=== PATIENT | female | born 1965 | race Caucasian/White ===

== ENCOUNTER → 2020-01-15 16:51 | Outpatient (CLI) | payer OTHER, SELFPAY ==
--- NOTE | ~2020-01-15 | MM_ITS ---
EXAMINATION: MM screening [facility] BI w sabrina HISTORY: Screening mammogram TECHNIQUE: Craniocaudal and mediolateral oblique 3-D tomosynthesis images were obtained and synthetic 2-D images were generated. CAD analysis was submitted and interpreted. COMPARISON: 12/03/2016, 06/18/2015, 03/22/2014, 01/24/2014 BREAST PARENCHYMAL COMPOSITION: The breasts are heterogeneously dense, which may obscure small masses . FINDINGS: There is no evidence of suspicious mass, calcification, or architectural distortion to sugg est malignancy in either breast. There has been no suspicious interval change. IMPRESSION: 1. No mammographic evidence of malignancy. 2. Recommend routine screening mammography in one year. BI-RADS Category 1: Negative Reviewed, dictated and finalized at location A. ARIAL SCIENCE PROFESSOR
== END ==
PROVIDERS: PCP Internal Medicine; Visit Provider Nurse Practitioner Obstetrics & Gynecology
DX: Z12.31 Encounter for screening mammogram for malignant neoplasm of breast (principal)
CPT/HCPCS: 77063; 77067

== ENCOUNTER → 2021-04-02 15:58 | Outpatient (CLI) | payer OTHER, SELFPAY ==
--- NOTE | ~2021-04-02 | MM_ITS ---
EXAMINATION: MM screening [facility] BI w sabrina HISTORY: Screening mammogram TECHNIQUE: Craniocaudal and mediolateral oblique 3-D tomosynthesis images were obtained and synthetic 2-D images were generated. CAD analysis was submitted and interpreted. COMPARISON: 01/15/2020, 12/03/2016, 06/18/2015 BREAST PARENCHYMAL COMPOSITION: The breasts are heterogeneously dense, which may obscure small masses . FINDINGS: There is no evidence of suspicious mass, calcification, or architectural distortion to sugg est malignancy in either breast. There has been no suspicious interval change. IMPRESSION: 1. No mammographic evidence of malignancy. 2. Recommend routine screening mammography in one year. BI-RADS Category 1: Negative Reviewed, dictated and finalized at location A. S ATTENDANT BUILDING MATERIALS
== END ==
PROVIDERS: Visit Provider Nurse Practitioner Obstetrics & Gynecology
DX: Z12.31 Encounter for screening mammogram for malignant neoplasm of breast (principal)
CPT/HCPCS: 77063; 77067

== ENCOUNTER 2021-06-03 19:06 | Emergency (ER) | payer OTHER, SELFPAY ==
[2021-06-03 19:13] VITALS: BP 148/78; PULSE 68; RESP 18; TEMP 36.8; O2SAT 99
[2021-06-03 19:36] LABS: Glucose Point of Care 109 mg/dl (65-105)
--- NOTE | 2021-06-03 19:41 | PC.NURSE ---
Pt states she wants dinner and to leave.
--- NOTE | 2021-06-03 19:41 | ED.GENADULT ---
HPI - General Adult General Chief complaint: Recheck/Abnormal Lab/Rx Stated complaint: HYPOGLYCEMIA Time Seen by Provider: 06/03/21 19:10 Source: patient, family, EMS and RN notes reviewed History of Present Illness HPI narrative: 56-year-old female with history of type 1 diabetes with an insulin pump presenting to the emerge department for evaluation of an episode of hypoglycemia. Patient states she did not have a very large lunch and suspects that she may have over-bolused herself. Patient states she began to feel ill while driving. Patient was able to green chain puller her car and call EMS. EMS did arrive to the scene and found that the patient had a blood sugar of 31. Patient was treated with D10 and was transported to the emerge department. Upon arrival patient was alert and oriented. Patient is tolerating p.o. Patient denies any other complaints at this time. Patient does have a history of coronary disease and did have a cath approximately 2 weeks ago. Patient denies any current chest pain or shortness of breath. Related Data Allergies Allergy/AdvReac Type Severity Reaction Status Date / Time No Known Allergies Allergy Unknown Unverified 08/02/16 23:25 Review of Systems Review of Systems: CONSTITUTIONAL: Denies fever, chills, or sweats. EYES: Denies visual changes, redness, or discharge. ENT: Denies rhinorrhea, congestion, sore throat, or otalgia. CARDIOVASCULAR: Denies chest pain, palpitations, or edema. RESPIRATORY: Denies cough or dyspnea. GASTROINTESTINAL: Denies abdominal pain, nausea, vomiting, or diarrhea. GENITOURINARY: Denies dysuria or hematuria. SKIN: Denies rash or itching. MUSCULOSKELETAL: Denies back pain, joint pain, or myalgia. NEUROLOGIC: Denies headache, numbness, or weakness. All systems reviewed & are unremarkable except as noted in HPI and below PMFSH Family History Family History (Updated 10/04/15 @ 23:19 by DOCTOR UNKNOWN) Mother Hypertension Family history of diabetes mellitus in first degree relative Social History Social History Smoking status: Never smoker Second hand tobacco smoke exposure: No Alcohol intake: never Exam Narrative: APPEARANCE: Well appearing, no pain, no distress, well-nourished. HEAD: normocephalic, atraumatic. EYES: PERRLA/EOMI, conjunctivae clear. NECK: Supple. No adenopathy, no masses. RESPIRATORY: Airway patent, respirations nonlabored. Clear to auscultation bilaterally, no rales, rhonchi, wheezing. CARDIOVASCULAR: Regular rate and rhythm without murmurs rubs or gallops. ABDOMINAL: Soft, nontender, nondistended, normal bowel sounds MUSCULOSKELETAL: Moves all extremities. Strength/ROM intact, No edema, No calf tenderness. NEURO: Alert. Cranial nerves II through XII intact. Grossly intact SKIN: Warm, dry. Normal Color PSYCHIATRIC: Normal affect/mood. Course Course Emergency Course: Patient was offered baseline labs and patient declined. Patient did have a repeat blood glucose in the emergency department which was 109. Patient is tolerating p.o. Patient is declining any additional work-up and does prefer to go home. Patient was encouraged to close follow-up with her primary care physician. Patient is alert and oriented and is well-appearing at time of discharge. Vital Signs Vital signs: Vital Signs Temperature 98.2 F 06/03/21 19:13 Pulse Rate 68 06/03/21 19:13 Respiratory Rate 18 06/03/21 19:13 Blood Pressure 148/78 H 06/03/21 19:13 Pulse Oximetry 99 06/03/21 19:13 Temperature 98.2 F 06/03/21 19:13 Pulse Rate 68 06/03/21 19:13 Respiratory Rate 18 06/03/21 19:13 Blood Pressure 148/78 H 06/03/21 19:13 Pulse Oximetry 99 06/03/21 19:13 Medical Decision Making Vital Signs Vital Signs: Vital Signs Temperature 98.2 F 06/03/21 19:13 Pulse Rate 68 06/03/21 19:13 Respiratory Rate 18 06/03/21 19:13 Blood Pressure 148/78 H 06/03/21 19:13 Pulse Oximetry 99 06/03/21 19:13 Temperature 98.2 F 05/07
== END 2021-06-03 19:51 | disposition home or self-care (01) ==
LOC: ANHED 19:47
PROVIDERS: Emergency Provider Emergency Medicine; PCP Nurse Practitioner Family
DX: E10.649 Type 1 diabetes mellitus with hypoglycemia without coma (principal); I25.10 Atherosclerotic heart disease of native coronary artery without angina pectoris; Z79.4 Long term (current) use of insulin; Z96.41 Presence of insulin pump (external) (internal)
CPT/HCPCS: 82948; 99282

== ENCOUNTER 2022-06-14 08:48 | Emergency (ER) | payer OTHER, SELFPAY ==
--- NOTE | ~2022-06-14 | XR_ITS ---
XR chest 2V DATE: 06/14/2022 09:29 INDICATION: Left chest pressure and chest pain since last evening. TECHNIQUE: 2 views COMPARISON: 05/20/2017 CTA chest 05/20/2017 portable AP chest 08/03/2016 two-view chest FINDINGS: There is evidence of a coronary artery stent since 05/20/2017. Normal heart size. Mild discoid atelectasis or scarring, left lower lung. The lungs are clear of active infiltrate or co nsolidation. No pleural effusion or pulmonary vascular congestion or pneumothorax is detected. Included skeletal structures are unremarkable. IMPRESSION: Coronary artery stent since 05/20/2017 Small discoid atelectasis or scar, left lower lung; otherwise no activecardiopulmonary disease Reviewed, dictated and finalized at location A. IMPRESSION: Coronary artery stent since 05/20/2017 Small discoid atelectasis or scar, left lower lung; otherwise no activecardiopu lmonary disease
--- NOTE | 2022-06-14 08:49 | ECG_ITS ---
Measurements Intervals [place] Rate: 72 P: 5 MA: 145 QRS: 71 QRSD: 91 T: 15 QT: 367 QTc: 404 Interpretive Statements SINUS RHYTHM NORMAL ECG NO PREVIOUS ECG AVAILABLE FOR COMPARISON Electronically Signed On 06-14-2022 13:52:40 CDT by Milton Damon M.D.
[2022-06-14 08:50] VITALS: BP 157/54; PULSE 76; RESP 16; TEMP 36.4; O2SAT 100
[2022-06-14 09:02] LABS: Basophils Percent Auto 0.5 % (0.2-1.2); Eosinophils Absolute Auto 0.1 K/mm3 (0-0.3); Eosinophils Percent Auto 3.5 % (0-4.4); Hematocrit 35.6 % (37.0-47.0); Hemoglobin 11.9 g/dL (12.0-15.0); Immature Granulocyte Absolute 0.01 K/mm3 (0.00-0.031); Immature Granulocyte Percent A 0.2 % (0-0.5); Lymphocytes Absolute Auto 1.19 K/mm3 (0.9-3.2); Lymphocytes Percent Auto 29.4 % (18.3-44.2); Mean Corpuscular HGB Conc 33.4 g/dl (32-36); Mean Corpuscular Hemoglobin 31.4 pg (26-34); Mean Corpuscular Volume 93.9 fl (80-100); Mean Platelet Volume 10.8 fl (7.4-10.4); Monocytes Absolute Auto 0.3 K/mm3 (0.1-0.6); Monocytes Percent Auto 7.9 % (2.6-8.5); Neutrophils Absolute Auto 2.4 K/mm3 (1.3-6.7); Neutrophils Percent Auto 58.5 % (45.5-73.1); Platelet Count Result 205 k/mm3 (150-375); Red Blood Count 3.79 M/mm3 (4.2-5.4); Red Cell Distribution Width 13.3 % (11.5-14.5); White Blood Count 4.1 K/mm3 (4.5-10.0)
[2022-06-14 09:12] LABS: Alanine Aminotransferase 41 U/L (6-35); Albumin Level 4.6 g/dL (3.5-5.1); Alkaline Phosphatase 81 U/L (38-126); Anion Gap 6 mmol/L (8-16); Aspartate Amino Transferase 40 U/L (14-36); Blood Urea Nitrogen 22 mg/dL (7-17); Calcium 9.2 mg/dL (8.4-10.2); Carbon Dioxide 30 mmol/L (22-30); Chloride 102 mmol/L (98-107); Estimated CRCL calculation 55 ml/min; Estimated Glomerular Filt Rate 52; Glucose 177 mg/dL (65-110); Lipase 330 U/L (23-300); Potassium 4.4 mmol/L (3.4-5.0); Sodium 138 mmol/L (137-145)
[2022-06-14 09:13] LABS: Partial Thromboplastin Time 32.1 SECONDS (22.3-36.8); Prothrombin Time 13.1 Seconds (11.1-14.7)
[2022-06-14 09:23] LABS: Troponin I < 0.012 ng/mL (0.000-0.034)
--- NOTE | 2022-06-14 10:39 | PC.NURSE ---
pt stating she is going to leave. states has preexisting medical condition that causes her to have chest pain. states obviously im not having a heart attack or i wouldnt be sitting in the waiting room
== END 2022-06-14 12:31 | disposition left against medical advice (07) ==
PROVIDERS: Emergency Medicine; PCP Nurse Practitioner Family
DX: R07.9 Chest pain, unspecified (principal)
CPT/HCPCS: 36415; 71046; 80053; 83690; 84484; 85025; 85610; 85730; 93005; 99199

== ENCOUNTER 2024-11-07 12:46 | Outpatient (CLI) | payer OTHER, SELFPAY ==
--- NOTE | ~2024-11-07 | MM_ITS ---
EXAMINATION: MM screening [facility] BI w sabrina HISTORY: Screening TECHNIQUE: Craniocaudal and mediolateral oblique 3-D tomosynthesis images were obtained and synthetic 2-D images were generated. CAD analysis was submitted and interpreted. COMPARISON: Mammograms from 04/02/2021 and 01/15/2020 BREAST PARENCHYMAL COMPOSITION: The breasts are heterogeneously dense, which may obscure small masses. FINDINGS: There is no evidence of suspicious mass, calcification, or architectural distortion in either breast to suggest malignancy. There has been no significant interval change. IMPRESSION: 1. No mammographic evidence of malignancy. Recommend routine screening mammography in one year. BI-RADS Category 1: Negative Reviewed, dictated and finalized at location Q. IMPRESSION: 1. No mammographic evidence of malignancy. Recommend routine screening mammogra phy in one year. BI-RADS Category 1: Negative
--- OUTSIDE RECORDS SUMMARY | 2024-11-07 12:57 | XMS_ITS | Encounter Summary ---
Author Organization [facility] Facility Care Team Providers Care Network Development Coordinator Name Role Phone Eliz Rosas MD Primary Care Provider [phone] Yvan Wade MD Unavailable Rosa Clayton ALUMINUM SIDING APPLICATOR Primary Care Provider + Praful Corley DO Unavailable [phone] Isaac Cuadra DO Primary Care Provider + Encounter Details Date Type Department Care Team (Latest Contact Info) Description 08/02/2016 Orders Only [facility] CLINCONV Provider, MD Yoli [address] [place] [id number] Social History Tobacco Use Types Packs/Day Years Used Date Smoking Tobacco: Never Assessed Alcohol Use Standard Drinks/Week Comments No 0 (1 standard drink = 0.6 oz pur e alcohol) Comments Unknown Sex and Gender Information Value Date Recorded Sex Assigned at Not on file Legal Sex Female 11:08 PM PATIENT ADVOCATE Gender Identity Not on file Sexual Orientation Not on file documented as of this encounter Plan of Treatment Not on file documented as of this encounter Procedures Procedure Name Priority Date/Time Associated Diagnosis Comments SCAN - LABS 08/04/2016 12:00 AM CDT documented in this encounter Results * SCAN - LABS (08/04/2016 12:00 AM CDT) Narrative 08/04/2016 12:00 AM CDT Ordered by an unspecified provider. Historical Provider Final Res ult documented in this encounter Visit Diagnoses Not on filedocumented in this encounter Care Teams Network Development Coordinator Relationship Specialty Start Date End Date Eliz Rosas MD [address] [facility] [address] [facility] [place] [address] PCP - General 02/12/10 05/05/21 Rosa Clayton, YUE [address] [facility] [address] [place] [place] [address] PCP - General Nurse Practitioner 05/06/21 12/07/23 Isaac Cuadra DO [facility] [facility] [address] [place] [place] [address] PCP - General Family Medicine 12/08/23 Yvan Wade MD [address] [facility] [place] [address] Consulting Physician Cardiovascular Disease 10/19/20 Praful Corley DO [address] [facility] [address] [place] [address] Consulting Physician Pulmonary Disease 05/13/21 documented as of this encounter
--- OUTSIDE RECORDS SUMMARY | 2024-11-07 12:57 | XMS_ITS | Encounter Summary ---
Author Organization [facility] Facility Care Team Providers Care Sewing Techniques Demonstrator Name Role Phone Eliz Rosas MD Primary Care Provider [phone] Yvan Wade MD Unavailable Rosa Clayton BUSINESS CASE ANALYST Primary Care Provider + Praful Corley DO Unavailable [phone] Isaac Cuadra DO Primary Care Provider + Encounter Details Date Type Department Care Team (Latest Contact Info) Description 05/20/2017 Orders Only [facility] CLINCONV Provider, MD Yoli [address] [place], [place] [id number] Social History Tobacco Use Types Packs/Day Years Used Date Smoking Tobacco: Never Assessed Alcohol Use Standard Drinks/Week Comments No 0 (1 standard drink = 0.6 oz pur e alcohol) Comments Unknown Sex and Gender Information Value Date Recorded Sex Assigned at Not on file Legal Sex Female 11:08 PM BROKER IN CHARGE Gender Identity Not on file Sexual Orientation Not on file documented as of this encounter Plan of Treatment Not on file documented as of this encounter Procedures Procedure Name Priority Date/Time Associated Diagnosis Comments CARDIOLOGY REPORT 05/25/2017 12: 00 AM CDT CARDIOLOGY REPORT 05/25/2017 12: 00 AM CDT CARDIOLOGY REPORT 05/24/2017 12: 00 AM CDT documented in this encounter Results * CARDIOLOGY REPORT (05/25/2017 12:00 AM CDT) Anatomical Region Laterality Modality Other Narrative 05/25/2017 12:00 AM CDT Ordered by an unspecified provider. us Historical Provider CV CARDIAC SERVICES PROCE DURES Final Result * CARDIOLOGY REPORT (05/25/2017 12:00 AM CDT) Anatomical Region Laterality Modality Other Narrative 05/25/2017 12:00 AM CDT Ordered by an unspecified provider. Historical Provider CV CARDIAC SERVICES PROCE DURES Final Result * CARDIOLOGY REPORT (05/24/2017 12:00 AM CDT) Anatomical Region Laterality Modality Other Narrative 05/24/2017 12:00 AM CDT Ordered by an unspecified provider. Historical Provider CV CARDIAC SERVICES PROCE DURES Final Result documented in this encounter Visit Diagnoses Not on filedocumented in this encounter Care Teams Sewing Techniques Demonstrator Relationship Specialty Start Date End Date Eliz Rosas MD [address] [place] [address] [address] [place] [address] PCP - General 02/12/10 05/05/21 Rosa Clayton NP [address] [address] [place] [address] PCP - General Nurse Practitioner 05/06/21 12/07/23 Isaac Cuadra DO [address] [place] [address] [place] [address] PCP - General Family Medicine 12/08/23 Yvan Wade MD [address] [address] [address] [place] [address] Consulting Physician Cardiovascular Disease 10/19/20 Praful Corley DO [address] [place] [address] [address] [place] [address] Consulting Physician Pulmonary Disease 05/13/21 documented as of this encounter
--- OUTSIDE RECORDS SUMMARY | 2024-11-07 12:57 | XMS_ITS | Encounter Summary ---
Author Organization [facility] Healthcare Address [address] [place] [address] Care Team Providers Care Ux Engineer Name Role Phone Eliz Rosas MD Primary Care Provider [phone] Yvan Wade MD Unavailable Rosa Clayton CEO & BOARD DIRECTOR Primary Care Provider + Praful Corley DO Unavailable [phone] Isaac Cuadra DO Primary Care Provider + Encounter Details Date Type Department Care Team (Late st Contact Info) Description 05/20/2017 Orders Only [facility] Health Information Management [address] [place] [address] Scanning, Provider Social History Tobacco Use Types Packs/Day Years Used Date Smoking Tobacco: Never Assessed Alcohol Use Standard Drinks/Week Comments No 0 (1 standard drink = 0.6 oz pur e alcohol) Comments Unknown Sex and Gender Information Value Date Recorded Sex Assigned at Not on file Legal Sex Female 11:08 PM SEED CORN PRODUCTION MANAGER Gender Identity Not on file Sexual Orientation Not on file documented as of this encounter Plan of Treatment Not on file documented as of this encounter Procedures Procedure Name Priority Date/Time Associated Diagnosis Comments CARDIOLOGY DOCUMENT SCAN 05/20/2017 documented in this encounter Results * Cardiology Document Scan (05/20/2017) Anatomical Region Laterality Modality Other us Provider Scanning CV CARDIAC SERVICES PROCEDURES Final Result documented in this encounter Visit Diagnoses Not on filedocumented in this encounter Care Teams Ux Engineer Relationship Specialty Start Date End Date Eliz Rosas MD [address] [facility] [address] [facility] [address] PCP - General 02/12/10 05/05/21 Rosa Clayton, YUE [address] [facility] [place] [address] PCP - General Nurse Practitioner 05/06/21 12/07/23 Isaac Cuadra, [address] [facility] [address] [place] [address] PCP - General Family Medicine 12/08/23 Yvan Wade MD [address] [facility] [address] [place] [address] Consulting Physician Cardiovascular Disease 10/19/20 Praful Corley DO [address] [facility] [address] [place] [address] Consulting Physician Pulmonary Disease 05/13/21 documented as of this encounter
--- OUTSIDE RECORDS SUMMARY | 2024-11-07 12:57 | XMS_ITS | Clinical Summary ---
Author Organization [facility] [place] [address] Address [address] [place] [address] Care Team Providers Care Site Inspector Name Role Phone Yvan Wade MD Unavailable Praful Corley DO Unavailable [phone] Isaac Cuadra DO Primary Care Provider + Allergies No known active allergies Medications insulin aspart (NovoLOG) 100 unit/mL vial for injection Use 3 vials in Insulin pump/ Max 100 units daily 30 mL 3 1 Active multivitamin capsule Take 1 capsule by mouth daily Active Dexcom G6 Transmitter device CHANGE TRANSMITTER EVERY 90 DAYS. 3 Active glucagon (Gvoke HypoPen 1-Pack) 1 mg/0.2 mL auto-injector INJECT 1 MG NEEDED BY SUBCUTANEOUS ROUTE NEEDED FOR 1 DAY. Active nitroglycerin (NITROSTAT) 0.4 mg SL tabletIndicatio ns:Coronary artery disease of [place] artery of [place] heart with stable angina pectoris,Primar y hypertension,Mi xed hyperlipidemia, Bruit of right carotid artery Place 1 tablet (0.4 mg total) under the tongue every 5 (five) minutes as needed for chest pain May repeat dose q 5 min, up to 3 doses total 10 tablet 4 Active aspirin 81 mg enteric coated tabletIndicatio ns:Coronary artery disease of [place] artery of [place] heart with stable angina pectoris,Primar y hypertension,Mi xed hyperlipidemia, Bruit of right carotid artery Take 1 tablet (81 mg total) by mouth daily 90 tablet 1 4 Active clopidogreL (PLAVIX) 75 mg tabletIndicatio ns:Coronary artery disease of [place] artery of [place] heart with stable angina pectoris,Primar y hypertension,Mi xed hyperlipidemia, Bruit of right carotid artery Take 1 tablet (75 mg total) by mouth daily 90 tablet 1 4 Active isosorbide mononitrate ER (IMDUR) 60 mg 24 hr tabletIndicatio ns:Coronary artery disease of [place] artery of [place] heart with stable angina pectoris,Primar y hypertension,Mi xed hyperlipidemia, Bruit of right carotid artery Take 1 tablet (60 mg total) by mouth daily 90 tablet 1 4 Active lisinopriL (PRINIVIL,ZESTR [place]) 20 mg tabletIndicatio ns:Coronary artery disease of [place] artery of [place] heart with stable angina pectoris,Primar y hypertension,Mi xed hyperlipidemia, Bruit of right carotid artery Take 1 tablet (20 mg total) by mouth daily 90 tablet 1 4 Active rosuvastatin (CRESTOR) 40 mg tabletIndicatio ns:Coronary artery disease of [place] artery of [place] heart with stable angina pectoris,Primar y hypertension,Mi xed hyperlipidemia, Bruit of right carotid artery Take 1 tablet (40 mg total) by mouth nightly 90 tablet 1 4 Active metoprolol XL (TOPROL-XL) 25 mg extended release tabletIndicatio ns:Coronary artery disease of [place] artery of [place] heart with stable angina pectoris,Primar y hypertension,Mi xed hyperlipidemia, Bruit of right carotid artery Take 1 tablet (25 mg total) by mouth daily 90 tablet 4 Active Xarelto 2.5 mg tablet Take 1 tablet (2.5 mg total) by mouth 2 (two) times a day 5 Active Active Problems Problem Noted Date Diagnosed Date Diabetic neuropathy, type I diabetes mellitus (C MS/HCC) 10/20/2023 Bruit of right carotid artery 10/20/2023 Mixed hyperlipidemia 04/08/2023 Epigastric pain 10/17/2021 Status post primary angioplasty with coronary st ent 12/11/2020 Lung blebs 10/28/2020 Assessment & Plan (10/28/2020 5:08 PM CDT): As seen on CT imaging Pulmonary consultation Could be a source of chest pain symptoms CAD (coronary artery disease) 10/28/2020 Overview (10/28/2020): As recently diagnosed Cardiology consultation Patient will continue aspirin and Brilinta therapies Pending further recommendations for adjustments to management Chest pain 10/18/2020 Assessment & Plan (10/28/2020 7:24 PM CDT): Telemetry Cardiology consultation Serial cardiac enzymes Nitroglycerin p.r.n. Morphine p.r.n. Aspirin Recent history of coronary artery disease with stent placement, and starting of Brilinta and aspirin therapies Differential diagnosis includes pulmonary blebs versus GERD versus esophageal vasospasms versus other; Will supplement IV Pepcid x1 dose now--pending follow-up assessment Positive cardiac stress test 10/17/2020 Overview (10/17/2020): Added automatically from request for surgery [id number] Dyslipidemia 07/19/2020 Assessment & Plan (10/28/2020 7:21 PM CDT): Continue home regimen Family history of coronary artery disease 2020 Other chest pain 07/03/2020 Assessment & Plan (07/03/2020 12:19 PM CDT): The patient has atypical chest pain. Will make a referral to see a assayer for stress test. Her symptoms are not typical for cardiac pain. Primary hypertension 07/03/2020 Assessment & Plan (10/28/2020 5:09 PM CDT): Continue home regimen Assessment & Plan (07/03/2020 12:19 PM CDT): Continue current medications. Discussed low-salt diet. Discussed exercise on regular basis. Will continue to monitor Colon cancer screening 03/31/2019 Assessment & Plan (07/03/2020 12:18 PM CDT): She was advised again to have colo guard test done as soon as possible Assessment & Plan (10/31/2019 3:15 PM CDT): Patient did not have colo guard test done. We we will order the test again. The patient understand the risk of cancer Assessment & Plan (03/31/2019 12:36 PM STORE GIFT WRAP ASSOCIATE): The patient declined colonoscopy. She agreed to have the colo guard test done. It was ordered but she did not do with yet. The patient was advised to have the test done as soon as possible. Cervical pain (neck) 09/30/2018 Assessment & Plan (10/31/2019 3:15 PM CDT): The patient was offered to see pain specialist for further evaluation and she declined. The patient has no weakness in the upper extremities Assessment & Plan (03/31/2019 12:35 PM STORE GIFT WRAP ASSOCIATE): Resolved Assessment & Plan (09/30/2018 12:40 PM CDT): Will obtain MRI of the cervical spine for further evaluation specially with the numbness in both hands to rule out cervical disc disease Pure hypercholesterolemia 09/30/2018 Assessment & Plan (07/03/2020 12:18 PM CDT): Controlled on current medications. Continue low-fat diet. Will continue to monitor . Assessment & Plan (10/31/2019 3:15 PM CDT): Patient is on low-fat diet and Crestor. Blood work was done. Assessment & Plan (03/31/2019 12:35 PM STORE GIFT WRAP ASSOCIATE): Patient was started on Crestor by the type casting machine operator and she was advised to take the medication Assessment & Plan (09/30/2018 12:40 PM CDT): Discussed low-fat diet and weight loss. The patient likes to avoid medications. Will check lipid will few months and if it is not controlled we will consider medication Peripheral neuropathy 09/13/2015 Assessment & Plan (10/31/2019 3:14 PM CDT): Patient has peripheral neuropathy. She is not interested in medications her. Her symptoms could be secondary to diabetes but they also could be secondary to her chronic neck disease with the bulging disc. Assessment & Plan (03/31/2019 12:35 PM STORE GIFT WRAP ASSOCIATE): Asymptomatic Assessment & Plan (09/30/2018 12:39 PM CDT): . Mild and no medications are needed Type 1 diabetes mellitus without complication (C MS/HCC) 07/22/2013 Overview (06/11/2016): DMI WO CMP NT ST UNCNTRL Assessment & Plan (10/28/2020 7:21 PM CDT): Continue home regimen Fingersticks q.a.c. and HS with low-dose sliding scale Assessment & Plan (07/03/2020 12:18 PM CDT): Patient will continue with current medications and advised to have annual eye exam and advised to follow-up with type casting machine operator Assessment & Plan (10/31/2019 3:16 PM CDT): Patient is maintained on insulin. She is followed by the type casting machine operator. She stop taking lisinopril. I told her it is a good idea to take it to lower the blood pressure and to protect her kidneys from diabetes. She stated that the type casting machine operator told her that she did not need to take it so she decided not to take it. Assessment & Plan (03/31/2019 12:35 PM STORE GIFT WRAP ASSOCIATE): Continue current medications, discussed low carbohydrate diet, advised to exercise on regular basis, advised to have annual eye exam. We will continue to monitor. Assessment & Plan (09/30/2018 12:39 PM CDT): The patient is on insulin pump and she will follow up with the type casting machine operator. She is up-to-date with eye exam Resolved Problems Problem Noted Date Diagnosed Date Resolved Date Abnormal stress echo 10/18/2020 022 Encounters Date Type Department Care Team Description 10/20/2024 12:28 PM CDT - 10/20/2024 11:59 PM CDT Hospital Encounter [facility] [address] [place], [place] [id number] Discharge Disposition: Discharge to home or self care 10/20/2024 12:15 PM CDT Office Visit [facility] [id number] [place] [address] [phone] Lesli Rachel PA Acute pain of right knee (Primary Dx) from Last 3 Months Immunizations Immunization Administration Dates Next Due Influenza, Quadrivalent, Tesha l Culture-based MDCK, Antibiotic Free, Intramuscular 12/22/2018 Influenza, Quadrivalent, Spl it, Intramuscular 12/26/2015 Influenza, Quadrivalent, Spl it, Preservative Free, Intramuscular 12/16/2017,12/17/2016 Influenza, Trivalent, IM (MDV) 12/08/2012 Influenza, Trivalent, Preser vative Free, Intramuscular 12/20/2008,12/28/2007,01/06/2006 Tdap 03/31/2019 Surgical History Surgery Date Site/Laterality Comments TONSILLECTOMY as a child TYMPANOSTOMY TUBE PLACEMENT CARDIAC CATHETERIZATION 10/06/2020 - 11/05/2020 stent x1 - Dr Raza - Lucero and Aspirin. EYE SURGERY Left cataract SECTION 1994, 2000 Medical History Medical History Date Comments Hypertension Hypertension Hyperlipidemia Heart murmur GERD (gastroesophageal reflux disease) ? taking prilosec - attempting to r/o cardiac vs GERD. Bulging of cervical intervertebral disc numbness and tingling down arms. Allergic rhinitis Dental crowns present molar [place] ns. Emphysema of lung per CXR and CT Scan of Chest. SANDERSON (dyspnea on exertion) with S teps. Chest pain CAD (coronary artery disease) st ent x 06 Oct [address] Type 1 DM Bleb, lung (HCC) Right Lower Lob e Bleb - Seen by Dr Corley - no further interventions needed. Family history of adverse re action to anesthesia Dad slow to wake after anest hesia Type 1 diabetes mellitus 1979 Diabete s type 1 since age 14. Insulin pump. Family History Medical History Relation Name Comments Heart disease Father CAD s/p PCI Hyperlipidemia Father Diabetes Mother Hypertension Mother Diabetes type II Other Family hist ory of Diabetes -Type 2; Relation Name Status Comments Father Alive Mother Alive Other Social History Tobacco Use Types Packs/Day Years Used Date Smoking Tobacco: Never Smokeless Tobacco: Never Tobacco Cessation:Counseling Given: Not Answered Alcohol Use Standard Drinks/Week Comments Yes 0 (1 standard drink = 0.6 oz pur e alcohol) socially AUDIT-C Answer Date Recorded Q1: How often do you have a drink containing alc ohol? 2-3 times a week 05/13/2021 Q2: How many drinks containi ng alcohol do you have on a typical day when you are drinking? 1 or 2 05/13/2021 Q3: How often do you have si x or more drinks on one occasion? Never 05/13/2021 PHQ-2 Answer Date Recorded PHQ-2 Total Score (If total score is 3 or more points, staff should administer the PHQ-9) 0 12/11/2020 Education Answer Date Recorded What is the highest level of school you have completed or the highest degree you have received? 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 N ot on file Not on file Obstetrics History Last Filed Vital Signs Vital Sign Reading Time Taken Comments Blood Pressure 146/60 10/20/2023 12:06 PM CDT Pulse 67 10/20/2023 12:06 PM CDT Temperature 36.6 C (97.8 F) 05/19/2021 1:30 PM CDT Respiratory Rate 16 04/08/2023 9:52 AM STORE GIFT WRAP ASSOCIATE Oxygen Saturation 99% 10/20/2023 12:06 PM CDT Inhaled Oxygen Concentration - - Weight 77.1 kg (170 lb) 10/20/2024 12:22 PM CDT Height 167.6 cm (5' 6) 10/20/2024 12:22 PM CDT Body Mass Index 27.44 10/20/2024 12:22 PM CDT Plan of Treatment Health Maintenance Due Date Last Done Comments Colon Cancer Screening-Colonoscopy 1967 Foot Exam 1967 Hepatitis C Screening 1967 TSH Level 1967 Hepatitis B Screening 1985 Regular Well Visit/Exam 18-64 1985 Pneumococcal vaccine <65 (1 of 2 - PCV) 1986 Zoster Vaccine (1 of 2) 2017 Cervical Cancer Screening 04/25/2018 04/25/2017 Albumin Creatinine Ratio, Urine 01/25/2019 8 Hemoglobin A1C 04/20/2021 10/18/2020, 2 08/2020, 10/31/2019, Additional history exists Depression Screening 12/11/2021 12/11/2020, 12/11/2020, 07/03/2020, Additional history exists Breast Cancer Screening-Mammogram 04/03/2022 04/03/2021, 01/16/2020, 01/15/2020, Additional history exists Lipid Panel 05/15/2022 05/15/2021, 2 08/2020, 10/31/2019, Additional history exists eGFR 05/15/2022 05/15/2021, 10/07, 10/19/2020, Additional history exists Dilated Eye Exam 03/31/2023 03/31/2022, , 04/08/2019, Additional history exists Covid-19 Vaccine (2023-2 5 season) 2023 02/18/2021, 05/13/2020, 05/13/2020, Additional history exists Influenza Vaccine (#1) 2024 , 12/19/2020, 12/17/2020, Additional history exists DTaP/Tdap/Td Vaccine (2 - Td or Tdap) 03/31/2029 03/31/2019 Medical Devices Implanted Type Area Chief Deputy Court Clerk Device Identifier Shelf Expiration Date Model / Serial / Lot [employer] X [id number] Resolute [place] 3.5mm 2.1-2.7fr 34mm 140cm Rapid Exchange - [id number] Implanted:Qty: 1 on 10/18/2020 by Yuniel Raza MD at [facility] [employer] 06/26/2023 [id number] / / [id number] [employer] [place] [id number] Angio-Seal Evolution 6fr .035in Guidewire Bypass Tube Suture - [id number] Implanted:Qty: 1 on 10/18/2020 by Yuniel Raza MD at [facility] [id number] / / Angio-Seal Vip 6fr Closere Device [id number] - [id number] Implanted:Qty: 1 on 05/15/2021 by Yuniel Raza MD at [facility] 02/04/2022 [id number] / / [id number] Procedures Procedure Name Priority Date/Time Associated Diagnosis Comments XR KNEE RIGHT 3 VIEWS Schedule Routine, Read Routine (OP Routine) 10/20/2024 12:47 PM CDT Acute pain of right knee DIABETIC EYE EXAM Routine 03/31/2022 EGFR STAT 05/15/2021 6:51 AM STORE GIFT WRAP ASSOCIATE LIPID PANEL STAT 05/15/2021 6:51 AM STORE GIFT WRAP ASSOCIATE HEMOGLOBIN A1C Routine 10/18/2020 4:40 AM CDT HM MAMMOGRAPHY Routine 01/15/2020 ALBUMIN CREATININE RATIO, URINE Routine 01/25/2018 7:29 AM STORE GIFT WRAP ASSOCIATE HM PAP SMEAR WITH HPV Routine 04/25/2017 from Last 3 Months or Most Recently Relevant to Health Maintenance Results * XR Knee Right 3 View (10/20/2024 12:47 PM CDT) Anatomical Region Laterality Modality Lower Extremities, Knee Right Computed Radiography 10/20/2024 12:5 9 PM CDT Impressions 10/20/2024 12:59 PM CDT Mild patellofemoral compartment right knee osteoarthritis Electronically signed by: Estrada Beaver MD Narrative 10/20/2024 12:59 PM CDT EXAMINATION: XR KNEE RIGHT 3 VIEWS HISTORY: Right knee pain FINDINGS: No comparison. Mild patellofemoral compartment right knee osteoarthritis. Normal alignment. No fracture. Small right knee joint effusion. Mild anterior soft tissue swelling. Vascular calcifications. Procedure Note Estrada Beaver MD - 10/20/2024 EXAMINATION: XR KNEE RIGHT 3 VIEWS HISTORY: Right knee pain FINDINGS: No comparison. Mild patellofemoral compartment right knee osteoarthritis. Normal alignment. No fracture. Small right knee joint effusion. Mild anterior soft tissue swelling. Vascular calcifications. IMPRESSION: Mild patellofemoral compartment right knee osteoarthritis Electronically signed by: Estrada Beaver MD Lesli HELTON IMG XR PROCEDURES Fi nal Result * Diabetic Eye Exam (03/31/2022) Historical Provider HEALTH MAINTENANCE Final Result * eGFR (05/15/2021 6:51 AM STORE GIFT WRAP ASSOCIATE) eGFR 54 mL/min/1. 73 m2 LEENA Comment: Interpretive Data Reference Interval Normal >/= 90 mL/min/1.73m2 Mildly decreased* 60 - 89 mL/min/1.73m2 Mildly to moderately decreased 45 - 59 mL/min/1.73m2 Moderately to severely decreased 30 - 44 mL/min/1.73m2 Severely decreased 15 - 29 mL/min/1.73m2 Kidney Failure < 15 mL/min/1.73m2 *Relative to young adult level Estimated glomerular filtration rate is determined by the 2020 CKD-EPI equation recommended by the National Kidney Foundation (A Unifying Approach to GFR Estimation: Recommendations of the NKF-ASK Task Force on Reassessing the Inclusion of Race in Diagnosing Kidney Disease, JASN 2020). The CKD-EPI equation should not be used for patients with unstable renal function and has not been validated in children and those over 70. Current interpretive data was last reviewed 2021. Blood 05/15/2021 6:51 AM STORE GIFT WRAP ASSOCIATE 05/15/2021 6:54 AM STORE GIFT WRAP ASSOCIATE Yuniel Raza MD LAB BLOOD ORDERABLES Final Result [facility] [address] [facility] Department [place] [address] * Lipid panel (05/15/2021 6:51 AM STORE GIFT WRAP ASSOCIATE) Cholesterol 108 30 - 199 mg/dL LEENA FLORES Comment: Interpretive Data Ages < or = 19 years Acceptable: <170 mg/dL Borderline high: 170-199 mg/dL High: >or= 200 mg/dL Ages > or = 20 years Desirable: <200 mg/dL Borderline high: 200-239 mg/dL High: >or= 240 mg/dL Literature References: 1. Expert Panel on Integrated Guidelines for Cardiovascular Health and Risk Reduction in Children and Adolescents. Pediatrics 2011;128:S213 2. NCEP Expert Panel. Circulation 2004;110:227 Current Interpretive Data was last revised on 2017. Triglycerides 44 <=149 mg/dL LEENA FLORES Comment: Interpretive Data Ages < or = 9 years Acceptable: <75 mg/dL Borderline high: 75-99 mg/dL High: >or= 100 mg/dL Ages 10 to 20 years Acceptable: <90 mg/dL Borderline high: 90-129 mg/dL High: >or= 130 mg/dL Ages > or = 20 years Desirable: <150 mg/dL Borderline high: 150-199 mg/dL High: 200-499 mg/dL Very high: >or= 499 mg/dL Literature References: 1. Expert Panel on Integrated Guidelines for Cardiovascular Health and Risk Reduction in Children and Adolescents. Pediatrics 2011;128:S213 2. NCEP Expert Panel. Circulation 2004;110:227 Current Interpretive Data was last revised on 2017. HDL 61 >=40 mg/dL LEENA Comment: Interpretive Data Ages < or = 19 years Acceptable: >45 mg/dL Borderline low: 40-45 mg/dL Low: <40 mg/dL Ages > or = 20 years Desirable: >or= 60 mg/dL Low: <40 mg/dL Literature References: 1. Expert Panel on Integrated Guidelines for Cardiovascular Health and Risk Reduction in Children and Adolescents. Pediatrics 2011;128:S213 2. NCEP Expert Panel. Circulation 2004;110:227 Current Interpretive Data was last revised on 2017. LDL, calculated 38 <=129 mg/dL LEENA SANDRA Comment: Interpretive Data Ages < or = 19 years Acceptable: <110 mg/dL Borderline high: 110-129 mg/dL High: >or= 130 mg/dL Ages > or = 20 years Optimal: <100 mg/dL Near optimal: 100-129 mg/dL Borderline high: 130-159 mg/dL High: >160 mg/dL Literature References: 1. Expert Panel on Integrated Guidelines for Cardiovascular Health and Risk Reduction in Children and Adolescents. Pediatrics 2011;128:S213 2. NCEP Expert Panel. Circulation 2004;110:227 Current Interpretive Data was last revised on 2017. Non-HDL Cholesterol 47 mg/dL LEENA FLORES Comment: Interpretive Data Ages < or = 19 years Acceptable: <120 mg/dL Borderline high: 120-144 mg/dL High: >145 mg/dL Ages > or = 20 years When triglycerides are >200 mg/dL, Non-HDL cholesterol is a secondary target of therapy with treatment goals that are 30 mg/dL greater than the LDL cholesterol target. Literature References: 1. Expert Panel on Integrated Guidelines for Cardiovascular Health and Risk Reduction in Children and Adolescents. Pediatrics 2011;128:S213 2. NCEP Expert Panel. Circulation 2004;110:227 Current Interpretive Data was last revised on 2017. Chol/HDL ratio 2 [facility]EENA FLORES Blood 05/15/2021 6:51 AM STORE GIFT WRAP ASSOCIATE 05/15/2021 6:54 AM STORE GIFT WRAP ASSOCIATE us Yuniel Raza MD LAB BLOOD ORDERABLES Final Result [facility] [address] [facility] Department of Laboratories [place], [place] [id number] * (ABNORMAL) Hemoglobin A1c (10/18/2020 4:40 AM CDT) Hgb A1C 7.0(H) 4.0 - 5.6 % [facility]EENA FLORES Estimated Average Glucose 154 mg/dL [facility]EENA FLORES Comment: The ADA recommends reporting an estimated Average Glucose (eAG) with all Hemoglobin A1c results using the equation derived from a study of 507 normal and diabetic adults. Minority populations were underrepresented and children were not included. (Diabetes Care 31:6005-3587, 2008). The eAG is not equivalent to a fasting glucose. Blood specimen (specimen) 10/18/2020 4:40 AM CDT 10/18/2020 5:10 AM CDT Nikki España MD LAB BLOOD ORDERABLE S Final Result Performing Organization Address [facility] Co de Phone Number [facility] [address] [facility] Department [place] [address] * MAMMOGRAPHY (01/15/2020) Mammography Normal Historical Provider HEALTH MAINTENANCE Final Result * Microalbumin / creatinine ratio, urine, random (01/25/2018 7:29 AM STORE GIFT WRAP ASSOCIATE) Pathologist [facility] CREATININE, RANDOM URINE 118 20 - 275 mg/dL [facility] HISTORICAL RESULTS MICROALBUMIN 0.4 See Note: mg/dL [facility] HISTORICAL RESULTS Comment: Reference Range: Reference Range Not established MICROALBUMIN/CREAT ININE RATIO, RANDOM URINE 3 <30 mcg/mg creat [facility] HISTORICAL RESULTS Comment: The ADA defines abnormalities in albumin excretion as follows: Category Result (mcg/mg creatinine) Normal < 30 Microalbuminuria 30-299 Clinical albuminuria > OR = 300 The ADA recommends that at least two of three specimens collected within a 3-6 month period be abnormal before considering a patient to be within a diagnostic category. 01/25/2018 7:29 AM STORE GIFT WRAP ASSOCIATE 01/26/2018 12:00 PM STORE GIFT WRAP ASSOCIATE Narrative [facility] HISTORICAL RESULTS - 01/26/2018 11:34 AM STORE GIFT WRAP ASSOCIATE FASTING:YES FASTING: YES PERFORMING LAB: [place], [facility] [address], [place] [address] Michael Castro D.O., MPH Eliz Rosas MD LAB URINE ORDERABLES Final Result [facility] HISTORICAL RESULTS * PAP SMEAR WITH HPV (04/25/2017) Pathologist [facility] Pap smear Normal Comment:Dr Gross Historical Provider HEALTH MAINTENANCE Final Result from Last 3 Months or Most Recently Relevant to Health Maintenance Insurance [facility] [id number] [facility] [id number] [facility] [id number] [employer] OPEN ACCESS Advance Directives For more information, please contact: [phone] * Full Code (Latest Code Status on File) Date Activated Date Inactivated Comments 05/15/2021 9:26 AM 05/15/2021 3:49 PM * Full Code Date Activated Date Inactivated Comments 10/28/2020 5:06 PM 10/29/2020 12:58 PM * LIMITED - No CPR Date Activated Date Inactivated Comments 10/28/2020 4:05 PM 10/28/2020 5:06 PM Question Answer Comments Provide aggressive medical m anagement before a full cardiopulmonary arrest occurs. Use antibiotics, IV Fluids, and medical treatment unless specifically selected below: No intubation * Full Code Date Activated Date Inactivated Comments 10/18/2020 7:34 AM 10/19/2020 6:10 PM Care Teams Site Inspector Relationship Specialty Start Date End Date Isaac Cuadra DO PCP - General Family Medicine 12/08/23 Yvan Wade MD Consulting Physician Cardiovascular Disease 10/19/20 Praful Corley DO Consulting Physician Pulmonary Disease 05/13/21
== END 2024-11-07 12:47 | disposition home or self-care (01) ==
LOC: CHSIMG 12:48
PROVIDERS: PCP Family Medicine; Visit Provider Student in an Organized Health Care Education/Training Program
DX: Z12.31 Encounter for screening mammogram for malignant neoplasm of breast (principal)
CPT/HCPCS: 77063; 77067